=== PATIENT | female | born 1990 | race Caucasian/White ===

== ENCOUNTER 2018-03-31 01:07 | Emergency (ER) | payer MEDICAID ==
[2018-03-31 01:53] LABS: ADD MAN DIFF? NO
[2018-03-31 01:54] LABS: WHITE BLOOD COUNT 7.4 10^3/ul (4.8-10.8)
[2018-03-31 01:54] LABS: BASOPHILS % 0.5 % (0.0-2.0); EOSINOPHILS # 0.5 10^3/ul (0.0-0.5); EOSINOPHILS % 6.4 % (0.0-7.0); HEMOGLOBIN 12.1 g/dl (12.0-16.0); LYMPHOCYTES # 1.4 10^3/ul (0.8-2.9); LYMPHOCYTES % 19.1 % (15.0-51.0); MEAN CORPUSCULAR HEMOGLOBIN 28.8 pg (29.0-33.0); MEAN CORPUSCULAR HGB CONC 33.6 g/dl (32.0-37.0); MEAN CORPUSCULAR VOLUME 85.7 fl (82.0-101.0); MONOCYTE # 0.5 10^3/ul (0.3-0.9); MONOCYTES % 6.8 % (0.0-11.0); NEUTROPHIL # 4.9 10^3/ul (1.6-7.5); NEUTROPHILS % 66.9 % (39.0-77.0); PLATELET COUNT 206 10^3/UL (140-415); RED CELL DISTRIBUTION WIDTH 13.9 % (11.5-14.5)
[2018-03-31 02:04] LABS: ADD UMIC NO; UR ASCORBIC ACID NEGATIVE (NEGATIVE); UR BILIRUBIN (Dip) NEGATIVE (NEGATIVE); UR BLOOD (Dip) NEGATIVE (NEGATIVE); UR CLARITY SLIGHTLY CLOUDY (CLEAR); UR COLOR YELLOW (YELLOW); UR GLUCOSE (Dip) NEGATIVE (NEGATIVE); UR KETONES (Dip) NEGATIVE (NEGATIVE); UR LEUKOCYTE ESTERASE (Dip) NEGATIVE Leu/ul (NEGATIVE); UR NITRITE (Dip) NEGATIVE (NEGATIVE); UR RBC 1 /HPF (0-5); UR SPECIFIC GRAVITY (Dip) 1.015 (1.003-1.030); UR SQUAMOUS EPITHELIAL CELL FEW /HPF (FEW); UR TOTAL PROTEIN (Dip) NEGATIVE (NEGATIVE); UR UROBILINOGEN (Dip) NEGATIVE (NEGATIVE); UR WBC 1 /HPF (0-5)
== END 2018-03-31 03:57 | disposition home or self-care (01) ==
LOC: FTE 01:07
DX: O41.8X10 Other specified disorders of amniotic fluid and membranes, first trimester, not applicable or unspecified (principal); O46.8X1 Other antepartum hemorrhage, first trimester; R10.2 Pelvic and perineal pain; Z3A.10 10 weeks gestation of pregnancy
CPT/HCPCS: 36415; 76801; 81001; 81003; 84702; 85025; 86900; 86901; 99284-25

== ENCOUNTER 2018-10-14 08:36 | Inpatient (IN) | payer MEDICAID ==
[2018-10-14] MEDS ORDERED: OXYTOCIN 30 UNITS/LR 500 ML IV ×2 (09:00)
[2018-10-14] MEDS ORDERED: BUTORPHANOL 2 MG INJ IV (09:00)
[2018-10-14] MEDS ORDERED: LIDOCAINE 1% (MPF) 30 ML INJ INJ (09:00)
[2018-10-14] MEDS ORDERED: MISOPROSTOL 200 MCG TAB PR (09:00)
[2018-10-14] MEDS ORDERED: CARBOPROST 250 MCG INJ IM (09:00)
[2018-10-14] MEDS: AMPICILLIN 2 GM/NS (PMX) 100 ML IVPB (10:34)
[2018-10-14] MEDS: LACTATED RINGER'S 1,000 ML IV ×2 (10:34→18:45)
[2018-10-14 11:14] LABS: ADD MAN DIFF? NO
[2018-10-14 11:18] LABS: BASOPHILS % 0.4 % (0.0-2.0); EOSINOPHILS # 0.3 10^3/ul (0.0-0.5); EOSINOPHILS % 3.7 % (0.0-7.0); HEMOGLOBIN 11.1 g/dl (12.0-16.0); LYMPHOCYTES # 1.3 10^3/ul (0.8-2.9); LYMPHOCYTES % 17.9 % (15.0-51.0); MEAN CORPUSCULAR HEMOGLOBIN 28.8 pg (29.0-33.0); MEAN CORPUSCULAR HGB CONC 32.6 g/dl (32.0-37.0); MEAN CORPUSCULAR VOLUME 88.1 fl (82.0-101.0); MEAN PLATELET VOLUME 9.8 fl (7.4-10.4); MONOCYTE # 0.5 10^3/ul (0.3-0.9); MONOCYTES % 7.2 % (0.0-11.0); NEUTROPHILS % 69.8 % (39.0-77.0); PLATELET COUNT 159 10^3/UL (140-415); RED BLOOD COUNT 3.86 10^6/ul (4.20-5.40); RED CELL DISTRIBUTION WIDTH 13.5 % (11.5-14.5)
[2018-10-14 11:18] LABS: WHITE BLOOD COUNT 7.2 10^3/ul (4.8-10.8)
[2018-10-14] MEDS: MISOPROSTOL 50 MCG CAPSULE PO (11:19)
[2018-10-14 11:37] LABS: INR 0.87; PARTIAL THROMBOPLASTIN TIME 26.6 Sec (23.0-35.0); PROTIME 11.9 Sec (11.9-14.9); PT RATIO 0.9
[2018-10-14 12:13] LABS: HEPATITIS B SURFACE ANTIGEN NEGATIVE (NEGATIVE)
[2018-10-14] MEDS: AMPICILLIN 1 GM/NS (PMX) 50 ML IVPB ×3 (14:46→22:46)
[2018-10-14] MEDS: OXYTOCIN 30 UNITS/LR 500 ML IV (15:17)
[2018-10-14 16:32] LABS: RAPID PLASMA REAGIN NONREACTIVE (NR)
[2018-10-14] MEDS: BUTORPHANOL 2 MG INJ IV (21:50)
[2018-10-15] MEDS: LACTATED RINGER'S 1,000 ML IV ×2 (00:49)
[2018-10-15] MEDS: BUTORPHANOL 2 MG INJ IV (00:59)
[2018-10-15] MEDS: OXYTOCIN 30 UNITS/LR 500 ML IV (02:31)
[2018-10-15] MEDS: METHYLERGONOVINE 0.2 MG INJ IM (02:31)
[2018-10-15] MEDS: IBUPROFEN 600 MG TAB PO ×5 (03:29→23:53)
[2018-10-15] MEDS ORDERED: CARBOPROST 250 MCG INJ IM (04:00)
[2018-10-15] MEDS ORDERED: MISOPROSTOL 200 MCG TAB PR (04:00)
[2018-10-15] MEDS ORDERED: WITCH HAZEL/GLYCERIN PAD PR (04:00)
[2018-10-15] MEDS ORDERED: BENZOCAINE 20% 56 ML SPRAY TOP (04:00)
[2018-10-15] MEDS ORDERED: OXYTOCIN 30 UNITS/LR 500 ML IV (04:00)
[2018-10-15] MEDS ORDERED: ACETAMINOPHEN 325 MG TAB PO (04:00)
[2018-10-15] MEDS ORDERED: HYDROCODONE/APAP (5/325) TAB PO (04:00)
[2018-10-15] MEDS ORDERED: METHYLERGONOVINE 0.2 MG INJ IM (04:00)
[2018-10-15] MEDS ORDERED: DIBUCAINE 1% 30 GM OINT TOP (04:00)
[2018-10-15] MEDS: LACTATED RINGER'S 1,000 ML IV* (07:02)
[2018-10-15] MEDS: SENNA/DOCUSATE NA (8.6MG/50MG) TAB PO ×2 (08:57→21:29)
[2018-10-16] MEDS: IBUPROFEN 600 MG TAB PO ×4 (05:45→23:56)
[2018-10-16] MEDS: SENNA/DOCUSATE NA (8.6MG/50MG) TAB PO ×2 (09:22→21:06)
[2018-10-16 10:24] LABS: ADD MAN DIFF? NO
[2018-10-16 10:28] LABS: BASOPHIL # 0.1 10^3/ul (0.0-0.1); BASOPHILS % 0.7 % (0.0-2.0); EOSINOPHILS # 0.3 10^3/ul (0.0-0.5); EOSINOPHILS % 3.7 % (0.0-7.0); HEMATOCRIT 30.5 % (37.0-47.0); HEMOGLOBIN 9.9 g/dl (12.0-16.0); LYMPHOCYTES # 1.7 10^3/ul (0.8-2.9); LYMPHOCYTES % 22.1 % (15.0-51.0); MEAN CORPUSCULAR HEMOGLOBIN 28.9 pg (29.0-33.0); MEAN CORPUSCULAR HGB CONC 32.5 g/dl (32.0-37.0); MEAN CORPUSCULAR VOLUME 89.2 fl (82.0-101.0); MEAN PLATELET VOLUME 10.1 fl (7.4-10.4); MONOCYTE # 0.3 10^3/ul (0.3-0.9); MONOCYTES % 4.1 % (0.0-11.0); NEUTROPHIL # 5.2 10^3/ul (1.6-7.5); NEUTROPHILS % 68.5 % (39.0-77.0); PLATELET COUNT 162 10^3/UL (140-415); RED BLOOD COUNT 3.42 10^6/ul (4.20-5.40)
[2018-10-16 10:28] LABS: WHITE BLOOD COUNT 7.6 10^3/ul (4.8-10.8)
[2018-10-17] MEDS: IBUPROFEN 600 MG TAB PO ×2 (05:17→12:43)
[2018-10-17] MEDS: SENNA/DOCUSATE NA (8.6MG/50MG) TAB PO (10:11)
[2018-10-17] MEDS: DIPHTH/TET/ACEL PERTUSS (ADULT) 0.5 ML VIAL IM* (10:16)
== END 2018-10-17 13:40 | disposition home or self-care (01) | DRG 807 ==
LOC: L-D 08:36 → PP1 10-15 03:38
PROVIDERS: Obstetrics & Gynecology
PROC: 3E033VJ Introduction of Other Hormone into Peripheral Vein, Percutaneous Approach (ICD-10-PCS; 2018-10-14 08:00)
DX: O99.824 Streptococcus B carrier state complicating childbirth (principal); Z37.0 Single live birth; Z3A.40 40 weeks gestation of pregnancy
CPT/HCPCS: 76815; 85025; 85610; 85730; 86592; 86850; 86900; 86901; 87340; 90715